=== PATIENT | female | born 1975 | race Caucasian/White ===

== ENCOUNTER 2017-02-01 18:16 | Emergency (ER) | payer SELFPAY ==
[~2017-02-01] VITALS: Ht 170.2 cm; Wt 108.9 kg
[2017-02-02] MEDS ORDERED: NAPROXEN500 MG PO (00:24)
== END 2017-02-02 00:40 | disposition home or self-care (01) ==
LOC: ED 18:16
DX: M72.2 Plantar fascial fibromatosis (principal); F17.200 Nicotine dependence, unspecified, uncomplicated; Z88.0 Allergy status to penicillin
CPT/HCPCS: 73630; 99283